=== PATIENT | male | born 1970 | race Two or more races ===

== ENCOUNTER 2025-05-31 07:11 | Inpatient (IN) | payer MEDICAID, OTHER ==
[~2025-05-31] VITALS: Ht 182.9 cm; Wt 118.7 kg
--- NOTE | 2025-05-31 08:20 | DVH ---
EXAM: XY CHEST PORTABLE Indication: pain Technique: Single frontal view of the chest was obtained Comparison: None FINDINGS: Lines and Tubes: None Lungs: No focal consolidation. Pleura: No effusion. No pneumothorax. Cardiomediastinal contours: Unremarkable. Atherosclerotic vascular calcifications of the thoracic ao rta are noted. Bones: No acute osseous abnormality. IMPRESSION: No acute cardiopulmonary disease.
--- NOTE | 2025-05-31 08:24 | ED.PDOC ---
GI ASSESSMENT HPI Comments 54 y/o M, presents to the ED for CC of abdominal pain. Patient states, he has been experiencing epigastric abdominal pain with associated nausea x1 day. Patient denies vomiting, diarrhea, melena, or constipation. No other associated symptoms, modifiers, recent injuries or sick contacts are present at this time. Chief Complaint: Abdominal Pain Time Seen by MD: 08:00 Reviewed Notes: Nurses Notes, Medications, Allergies Allergies: Coded Allergies: NO KNOWN ALLERGIES (Unverified , 05/31/25) Information Source: Patient Mode of Arrival: Ambulatory Timing: Days Duration: Since onset Prehospital treatment: None Quality: None Vomitus: None Stool: Normal Severity: Moderate Recent: None Recent Hx of: None Pain Location: Epigastric Modifying Factors: Nothing Associated sign and symptoms: Abdominal Pain Past Medical History PAST MEDICAL HISTORY: Denies Surgical History: Appendectomy Family History Family History: Unknown Social History Smoker: Non-Smoker Alcohol: Denies ETOH Use Drugs: Denies Drug Use Lives In: Home Constitutional: denies: chills, diaphoresis, fatigue, fever, malaise, sweats, weakness, others EENTM: denies: blurred vision, double vision, ear bleeding, ear discharge, ear drainage, ear pain, ear ringing, eye pain, eye redness, hearing loss, mouth pain, mouth swelling, nasal discharge, nose bleeding, nose congestion, nose pain, photophobia, tearing, throat pain, throat swelling, voice changes, others Respiratory: denies: cough, hemoptysis, orthopnea, SOB at rest, shortness of breath, SOB with excertion, stridor, wheezing, others Cardiovascular: denies: chest pain, dizzy spells, diaphoresis, Dyspnea on exertion, edema, irregular heart beat, left arm pain, lightheadedness, palpitat ions, PND, syncope, others Gastrointestinal: reports: abdominal pain, nausea; denies: abdomen distended, blood streaked bowels, constipated, diarrhea, dysphagia, difficulty swallowing, hematemesis, melena, poor appetite, poor fluid intake, rectal bleeding, rectal pain, vomiting, others Genitourinary: denies: burning, dysuria, flank pain, frequency, hematuria, incontinence, penile discharge, penile sore, pain, testicle pain, testicle swelling, urgency, others Neurological: denies: dizziness, fainting, headache, left sided numbness, left sided weakness, numbness, paresthesia, pre-existing deficit, right sided numbness, right sided weakness, seizure, speech problems, tingling, tremors, weakness, others Musculoskeletal: denies: back pain, gout, joint pain, joint swelling, muscle pain, muscle stiffness, neck pain, others Integumetry: denies: bruises, change in color, change in hair/nails, dryness, laceration, lesions, lumps, rash, wounds, others Allergic/Immunocompromised: denies: Difficulty Healing, Frequent Infections, Hives, Itching, others Hematologic/Lymphatic: denies: anemia, blood clots, easy bleeding, easy bruising, swollen glands, others Endocrine: denies: excessive hunger, excessive sweating, excessive thirst, excessive urination, flushing, intolerance to cold, intolerance to heat, unexplained weight gain, unexplained weight loss, others Psychiatric: denies: anxiety, bipolar disorder, depression, hopeless, panic disorder, schizophrenia, sleepless, suicidal, others All Other Systems: Reviewed and Negative Physical Exam General Appearance: No Apparent Distress, Normal HEENT: Normal ENT Inspection, Pharynx Normal Neck: Full Range of Motion, Non-Tender, Normal, Normal Inspection Respiratory: Chest Non-Tender, Lungs Clear, No Accessory Muscle Use, No Respiratory Distress, Normal Breath Sounds Cardiovascular: No Edema, No Murmur, No Gallop, Normal Peripheral Pulses, Regular Rate/Rhythm Breast Exam: Deferred Gastrointestinal: No Organomegaly, No Pulsatile Mass, Normal Bowel Sounds, Other (epigastric tenderness) Genitalia: Deferred Pelvic: Deferred Rectal: Deferred Extremities: No calf tenderness, Normal capillary refill, Normal inspection, Normal range of motion, Non-tender, No pedal edema Musculoskeletal : Apperance: Normal 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 Was a procedure done?: No GI differential Dx Differential Diagnosis: Gastritis/PUD, Gastroenteritis, Electrolyte Imbalance, Food Poisoning, Bacterial, Viral X-Ray, Labs, Meds, VS Vital Signs Date Time Temp Pulse Resp B/P (MAP) Pulse Ox O2 Delivery O2 Flow Rate FiO2 05/31/25 12:31 98 20 196/127 (150) 97 05/31/25 07:12 97.6 62 16 239/131 96 97.6 Lab Test 05/31/25 08:55 05/31/25 08:53 05/31/25 08:02 Range/Units Troponin I High Sensitivity 5 5 </=54 ng/L Urine Color Light-yellow Yellow Urine Clarity Clear Clear Urine pH 7.0 5.0-9.0 Urine Specific [place] 1.018 1.001-1.035 Urine Protein 1+ H Negative Urine Ketones Trace Negative Urine Blood Negative Negative /uL Urine Nitrite Negative Negative Urine Bilirubin Negative Negative Urine Urobilinogen Normal Negative mg/dL Urine Leukocyte Esterase Negative Negative /uL Urine RBC 3 0 - 3 /hpf Urine Microscopic WBC < 1 0-3 /HPF Urine Squamous Epithelial Cells None seen <5 /hpf Urine Bacteria None seen None Seen /hpf Urine Glucose 1+ H Normal mg/dL White Blood Count 7.0 4.4-10.8 10^3/uL Red Blood Count 4.90 4.5-5.90 10^6/uL Hemoglobin 13.7 13.5-17.5 g/dL Hematocrit 41.1 41.0-53.0 % Mean Corpuscular Volume 83.9 80.0-100.0 fL Mean Corpuscular Hemoglobin 28.0 28.0-32.0 pg Mean Corpuscular Hemoglobin Concent 33.4 32.0-36.0 g/dL Red Cell Distribution Width 15.8 H 11.8-14.3 % Platelet Count 239 140-450 10^3/uL Mean Platelet Volume 9.7 6.9-10.8 fL Neutrophils (%) (Auto) 87.2 H 37.0-80.0 % Lymphocytes (%) (Auto) 10.3 10.0-50.0 % Monocytes (%) (Auto) 2.2 0.0-12.0 % Eosinophils (%) (Auto) 0.0 0.0-7.0 % Basophils (%) (Auto) 0.3 0.0-2.0 % Neutrophils # (Auto) 6.1 1.6-8.6 10 ^3/uL Lymphocytes # (Auto) 0.7 0.4-5.4 10 ^3/uL Monocytes # (Auto) 0.2 0-1.3 10 ^3/uL Eosinophils # (Auto) 0 0-0.8 10 ^3/uL Basophils # (Auto) 0 0-0.2 10 ^3/uL Nucleated Red Blood Cells 0.0 % Sodium Level 141 136-145 mmol/L Potassium Level 3.9 3.5-5.1 mmol/L Chloride Level 102 98-107 mmol/L Carbon Dioxide Level 28 20-31 mmol/L Anion Gap 11 5-15 Blood Urea Nitrogen 8 L 9-23 mg/dL Creatinine 1.30 0.700-1.30 mg/dL Glomerular Filtration Rate Calc 66 >90 mL/min BUN/Creatinine Ratio 6.2 L 10.0-20.0 Serum Glucose 166 H 74-106 mg/dL Calcium Level 9.7 8.7-10.4 mg/dL B-Type Natriuretic Peptide 50.38 0-100 pg/mL Lipase 28 12-53 U/L Current Medications Medications (Trade) Dose Ordered Sig/Carol Route Start Time Stop Time Status Last Admin Sodium Chloride 1,000 ml @ 1,000 mls/hr Q1H ONCE IV 05/31/25 08:15 05/31/25 09:14 DC 05/31/25 12:32 Ondansetron HCl (Zofran) 4 mg ONCE ONCE IV 05/31/25 08:15 05/31/25 08:18 DC 05/31/25 12:32 [place] [address] Ph: [phone] DIAGNOSTIC IMAGING Diagnostic Imaging Report : [id number] Signed PATIENT: SHAWANDA OLMEDO ACCT: [id number] UNIT: [id number] : 1970 LOC: ER ROOM / BED: / AGE / SEX: 54 / M ADM STATUS: REG ER SERVICE 0744 ORDERING PHYSICIAN: MYLENE YING MD PROCEDURE(s): CXRP - CHEST PORTABLE REASON: abdominal pain ORDER NUMBER(s): [id number], ACCESSION NUMBER(s): [id number] EXAM: XY CHEST PORTABLE Indication: pain Technique: Single frontal view of the chest was obtained Comparison: None FINDINGS: Lines and Tubes: None Lungs: No focal consolidation. Pleura: No effusion. No pneumothorax. Cardiomediastinal contours: Unremarkable. Atherosclerotic vascular calcifications of the thoracic aorta are noted. Bones: No acute osseous abnormality. IMPRESSION: No acute cardiopulmonary disease. ATED BY: NAYA GRACIA MD DICTATED DATE/TIME: 05/31/25817 SIGNED BY: NAYA GRACIA MD SIGNED DATE/TIME: 05/31/25817 CC: Time of 1ST Reevaluation: 08:30 Reevaluation 1ST: Unchanged Patient Education/Counseling: Diagnosis, Treatment Family Education/Counseling: No Family Present SEPSIS Sepsis Screen Date sepsis recognized/suspect: May 31, 2025 Time Sepsis recognized/suspect: 715 Recent Procedure: No On Antibiotic Therapy: No Respiratory Rate >20: No Heart Rate >90: No Temp<36 C (96.8 F) or >38.3 C: No SBP <90 or MAP <65 mmHG: No New Acute Mental Status Change: No Is the patient on CPAP, BIPAP,: No Physician Orders Chest Portable (05/31/25 07:44) Ct Ab Pel With Iv Con Only (05/31/25 11:14) Cefazolin Ancef (05/31/25 13:30) Metronidazole Ivpb Flagyl (05/31/25 13:30) * Surgical Consult (05/31/25 ) Vital Signs Date Time Temp Pulse Resp B/P (MAP) Pulse Ox O2 Delivery O2 Flow Rate FiO2 05/31/25 12:31 98 20 196/127 (150) 97 05/31/25 07:12 97.6 62 16 239/131 96 97.6 Laboratory Tests Test 05/31/25 08:02 White Blood Count 7.0 10^3/uL (4.4-10.8) Medications Medications Dose Ordered Sig/Carol Route Start Time Stop Time Status Last Admin Dose Admin Ondansetron HCl 4 mg ONCE ONCE IV 05/31/25 08:15 05/31/25 08:18 DC 05/31/25 12:32 Sodium Chloride 1,000 ml @ 1,000 mls/hr Q1H ONCE IV 05/31/25 08:15 05/31/25 09:14 DC 05/31/25 12:32 Departure 1 Departure Time of Disposition: 13:29 (Patient presented with abdominal pain that was concerning for possible appendicits, gastritis, cholecystitis, colitis, gastroenteritis, sbo, or orther possible surgical emergency. Data: 1. I ordered and reviewed the result of at least 3 labs including a CBC, BMP, and Urinalysis. 2. I independently interpreted the following tests: CT Abdomen and Pelvis is concerning for acute cholecystitis .Risk:This patient has a high risk of morbidity due to further diagnostic testing or treatment and may suffer from an acute abdominal process disorder. Workup reveals acute cholecystitis and patient should be admitted for further workup. and possible expert consultation. ) Impression: Primary Impression: Acute cholecystitis Additional Impression: Intractable abdominal pain Disposition: ADMITTED INPATIENT Admit to: Med Surg Condition: Serious Critical Care Note Critical Care Time?: Yes Critical care comment: Intractable abdominal pain Authorized and Performed by: Mylene Ying MD Total critical care time: Approximately 38 minutes Due to a high probability of clinically significant, life threatening deterioration, the patient required my highest level of preparedness to intervene emergently and I personally spent this critical care time directly and personally managing the patient. This critical care time included obtaining a history; examining the patient; pulse oximetry; ordering and review of studies; arranging urgent treatment with development of a management plan; evaluation of patient's response to treatment; frequent reassessment; and, discussions with other providers. This critical care time was performed to assess and manage the high probability of imminent, life-threatening deterioration that could result in multi-organ failure. It was exclusive of separately billable procedures and treating other patients and teaching time. Please see my other sections and the rest of the note for further information on patient assessment and treatment. Stability Stability form required: No Heart Score Heart Score: Heart Score Response (Comments) Value History N/A 0 EKG N/A 0 Age N/A 0 Risk Factors N/A 0 Troponin N/A 0 Total 0 I personally scribed for MYLENE YNIG MD ([email or web address]) on 05/31/25 at 08:24. Electronically submitted by Lyssa Graham ([email or web address]). I personally scribed for MYLENE YING MD ([email or web address]) on 05/31/25 at 08:46. Electronically submitted by Lyssa Graham ([email or web address]). MYLENE YING MD May 31, 2025 08:24
[2025-05-31 08:33] LABS: Hematocrit 41.1 % (41.0-53.0); Hemoglobin 13.7 g/dL (13.5-17.5); Mean Corpuscular Hemoglobin 28.0 pg (28.0-32.0); Mean Corpuscular Volume 83.9 fL (80.0-100.0); Nucleated Red Blood Cells % 0.0 %
[2025-05-31 08:41] LABS: Chloride 102 mmol/L (98-107); Potassium 3.9 mmol/L (3.5-5.1); Sodium 141 mmol/L (136-145)
[2025-05-31 08:42] LABS: Anion Gap 11 (5-15); Calcium 9.7 mg/dL (8.7-10.4); Carbon Dioxide 28 mmol/L (20-31)
[2025-05-31 08:47] LABS: BUN/Creatinine Ratio 6.2 (10.0-20.0)
[2025-05-31 08:51] LABS: Blood Urea Nitrogen 8 mg/dL (9-23); Glucose 166 mg/dL (74-106)
[2025-05-31 10:42] LABS: Urine Protein, UAD 1+ (Negative)
[2025-05-31] MEDS: ONDANSETRON HCL 4 MG/2 ML VIAL IV ONE (12:32)
[2025-05-31] MEDS: SODIUM CHLORIDE 0.9% 1,000 ML IV ONE ×2 (12:32→17:45)
[2025-05-31] MEDS: MORPHINE SULFATE 4 MG/ML SYR/VIAL IV ONE (12:33)
[2025-05-31] MEDS: IOHEXOL 300 MG/ML 100ML BOTTLE IJ ONE (12:33)
--- NOTE | 2025-05-31 12:38 | DVH ---
EXAM: CT CT AB PEL WITH IV CON ONLY HISTORY: abdominal pain TECHNIQUE: Volumetric multidetector CT images of the abdomen and pelvis were obtained after the admin istration of intravenous contrast. All CT scans at this facility use dose modulation, iterative recon struction, and/or weight based dosing when appropriate to reduce radiation dose to as low as reasonab ly achievable. COMPARISON: None FINDINGS: [LOWER CHEST]: The partially visualized lung bases are clear without a pleural effusion. [LIVER]: Normal hepatic size without suspicious focal lesion. [GALLBLADDER AND BILIARY TREE]: Layering cholelithiasis with surrounding pericholecystic edema correl ate with clinical exam for acute cholecystitis. [SPLEEN]: Unremarkable. [PANCREAS]: Unremarkable. [ADRENAL GLANDS]: Unremarkable [KIDNEYS]: No hydronephrosis. No nephroureterolithiasis. Benign appearing renal cysts, compatible wit h Bosniak type I cyst. No imaging follow-up required. [BLADDER]: Unremarkable for the degree distention. [REPRODUCTIVE ORGANS]: Unremarkable. [BOWEL/MESENTERY]: Stomach is normal. No CT evidence of bowel obstruction. minimal sigmoid diverticul osis. [ASCITES]: Absent [LYMPHADENOPATHY]: No pathologically enlarged lymph nodes by CT size criteria [VASCULATURE]: No aneurysmal dilatation. [ABDOMINAL WALL]: Unremarkable. [MUSCULOSKELETAL]: No acute fracture or aggressive focal osseous lesion. IMPRESSION: 1. Layering cholelithiasis with surrounding pericholecystic edema correlate with clinical exam for ac michelle cholecystitis.
[2025-05-31] MEDS ORDERED: MORPHINE SULFATE INJ 2 MG/ml SYRG IV PRN (14:15)
[2025-05-31] MEDS: ceFAZolin 2 GM/D5W50ml 50 ML IV ONE (14:16)
[2025-05-31] MEDS: hydrALAZINE HCL 20 MG/ML VL IV ONE ×2 (14:17→21:26)
[2025-05-31 14:22] VITALS: PULSE 74; RESP 18; O2SAT 98
[2025-05-31 14:56] LABS: Alanine Aminotransferase 22.0 U/L (7-40); Alkaline Phosphatase 79.0 U/L (46-116); Total Protein 8.1 g/dL (5.7-8.2)
[2025-05-31 14:57] LABS: Albumin 5.0 g/dL (3.2-4.8); Bilirubin, Direct 0.1 mg/dL (<0.3); Bilirubin, Total 0.5 mg/dL (0.2-1.0)
[2025-05-31 15:14] LABS: INR 1.02 (0.9-1.15); Partial Thromboplastin Time 25.7 SEC (24.5-34.5); Prothrombin Time 10.8 sec (9.3-11.8)
--- NOTE | 2025-05-31 17:32 | DVHHP2 ---
History of Present Illness Reason for Visit: Abdominal pain History of Present Illness 54-year-old male presents for evaluation of abdominal pain. Patient endorses a one day history of sharp epigastric abdominal pain with associated nausea and chills. Currently rates the pain at 4/10 intensity. No cardiac or respiratory complaints. Past Medical History Denies Past Surgical History Appendectomy Family History Noncontributory Smoke: No ALCOHOL: none Drugs: None Lives: with Family Review of Systems Review of Systems Review of systems are currently negative otherwise addressed in HPI. Allergies: Coded Allergies: NO KNOWN ALLERGIES (Unverified , 05/31/25) Medications Current Medications Medications Dose Ordered Sig/Carol Route Start Time Stop Time Status Last Admin Dose Admin Ceftriaxone Sodium 50 ml @ 100 mls/hr DAILY@09 IV 06/01/25 09:00 Metronidazole 100 ml @ 100 mls/hr Q8HR IV 05/31/25 22:00 Ondansetron HCl 4 mg Q4HP PRN IV 05/31/25 14:15 Morphine Sulfate 2 mg Q4HPRN PRN IV 05/31/25 14:15 Pantoprazole Sodium 40 mg DAILY IV 06/01/25 10:00 Exam Vital Signs Vital Signs Date Time Temp Pulse Resp B/P (MAP) Pulse Ox O2 Delivery O2 Flow Rate FiO2 05/31/25 16:43 101 18 145/90 (108) 98 05/31/25 15:04 Room Air* 0 21 05/31/25 15:02 98.9 98.9 Exam Gen: 54-year-old male in mild distress. Skin: Warm, dry, normal color and texture, no rash. HEENT: Normocephalic atraumatic, mucous membranes moist and pink. Neck: Cervical and supraclavicular nodes normal without enlargement, trachea is midline, thyroid gland is normal without masses. Pulmonary: Clear to auscultation and percussion bilaterally. Cardiac: Regular rate and rhythm. No murmur Abdomen: Soft, epigastric tenderness, nondistended, bowel sounds present all 4 quadrants, no guarding, no rigidity, no organomegaly. Extremities: No cyanosis, clubbing, no edema Neuro: Cranial nerves II through XII grossly intact, normal affect and speech, no focal motor deficits. Labs/Xrays ORDERING PHYSICIAN: MYLENE JOLLY MD PROCEDURE(s): CXRP - CHEST PORTABLE REASON: abdominal pain ORDER NUMBER(s): [id number], ACCESSION NUMBER(s): [id number] EXAM: XY CHEST PORTABLE Indication: pain Technique: Single frontal view of the chest was obtained Comparison: None FINDINGS: Lines and Tubes: None Lungs: No focal consolidation. Pleura: No effusion. No pneumothorax. Cardiomediastinal contours: Unremarkable. Atherosclerotic vascular calcifications of the thoracic aorta are noted. Bones: No acute osseous abnormality. IMPRESSION: No acute cardiopulmonary disease. RING PHYSICIAN: MYLENE JOLLY MD PROCEDURE(s): ABPLIV - CT AB PEL WITH IV CON ONLY REASON: abdominal pain ORDER NUMBER(s): [id number], ACCESSION NUMBER(s): [id number] EXAM: CT CT AB PEL WITH IV CON ONLY HISTORY: abdominal pain TECHNIQUE: Volumetric multidetector CT images of the abdomen and pelvis were obtained after the administration of intravenous contrast. All CT scans at this facility use dose modulation, iterative reconstruction, and/or weight based dos ing when appropriate to reduce radiation dose to as low as reasonably achievable. COMPARISON: None FINDINGS: [LOWER CHEST]: The partially visualized lung bases are clear without a pleural effusion. [LIVER]: Normal hepatic size without suspicious focal lesion. [GALLBLADDER AND BILIARY TREE]: Layering cholelithiasis with surrounding pericholecystic edema correlate with clinical exam for acute cholecystitis. [SPLEEN]: Unremarkable. [PANCREAS]: Unremarkable. [ADRENAL GLANDS]: Unremarkable [KIDNEYS]: No hydronephrosis. No nephroureterolithiasis. Benign appearing renal cysts, compatible with Bosniak type I cyst. No imaging follow-up required. [BLADDER]: Unremarkable for the degree distention. [REPRODUCTIVE ORGANS]: Unremarkable. [BOWEL/MESENTERY]: Stomach is normal. No CT evidence of bowel obstruction. minimal sigmoid diverticulosis. [ASCITES]: Absent [LYMPHADENOPATHY]: No pathologically enlarged lymph nodes by CT size criteria [VASCULATURE]: No aneurysmal dilatation. [ABDOMINAL WALL]: Unremarkable. [MUSCULOSKELETAL]: No acute fracture or aggressive focal osseous lesion. IMPRESSION: 1. Layering cholelithiasis with surrounding pericholecystic edema correlate with clinical exam for acute cholecystitis. ATED BY: TIM GOLDBERG MD DICTATED DATE/TIME: 05/31/25 1235 Labs Test 05/31/25 14:26 05/31/25 08:55 05/31/25 08:53 05/31/25 08:02 Range/Units Prothrombin Time 10.8 9.3-11.8 sec Prothrombin Time INR 1.02 0.9-1.15 Activated Partial Thromboplast Time 25.7 24.5-34.5 SEC Total Bilirubin 0.5 0.2-1.0 mg/dL Direct Bilirubin 0.1 <0.3 mg/dL Aspartate Amino Transferase (AST) 18 13-40 U/L Alanine Aminotransferase (ALT) 22 7-40 U/L Alkaline Phosphatase 79 46-116 U/L Total Protein 8.1 5.7-8.2 g/dL Albumin 5.0 H 3.2-4.8 g/dL Troponin I High Sensitivity 5 </=54 ng/L Urine Color Light-yellow Yellow Urine Clarity Clear Clear Urine pH 7.0 5.0-9.0 Urine Specific [place] 1.018 1.001-1.035 Urine Protein 1+ H Negative Urine Ketones Trace Negative Urine Blood Negative Negative /uL Urine Nitrite Negative Negative Urine Bilirubin Negative Negative Urine Urobilinogen Normal Negative mg/dL Urine Leukocyte Esterase Negative Negative /uL Urine RBC 3 0 - 3 /hpf Urine Microscopic WBC < 1 0-3 /HPF Urine Squamous Epithelial Cells None seen <5 /hpf Urine Bacteria None seen None Seen /hpf Urine Glucose 1+ H Normal mg/dL White Blood Count 7.0 4.4-10.8 10^3/uL Red Blood Count 4.90 4.5-5.90 10^6/uL Hemoglobin 13.7 13.5-17.5 g/dL Hematocrit 41.1 41.0-53.0 % Mean Corpuscular Volume 83.9 80.0-100.0 fL Mean Corpuscular Hemoglobin 28.0 28.0-32.0 pg Mean Corpuscular Hemoglobin Concent 33.4 32.0-36.0 g/dL Red Cell Distribution Width 15.8 H 11.8-14.3 % Platelet Count 239 140-450 10^3/uL Mean Platelet Volume 9.7 6.9-10.8 fL Neutrophils (%) (Auto) 87.2 H 37.0-80.0 % Lymphocytes (%) (Auto) 10.3 10.0-50.0 % Monocytes (%) (Auto) 2.2 0.0-12.0 % Eosinophils (%) (Auto) 0.0 0.0-7.0 % Basophils (%) (Auto) 0.3 0.0-2.0 % Neutrophils # (Auto) 6.1 1.6-8.6 10 ^3/uL Lymphocytes # (Auto) 0.7 0.4-5.4 10 ^3/uL Monocytes # (Auto) 0.2 0-1.3 10 ^3/uL Eosinophils # (Auto) 0 0-0.8 10 ^3/uL Basophils # (Auto) 0 0-0.2 10 ^3/uL Nucleated Red Blood Cells 0.0 % Sodium Level 141 136-145 mmol/L Potassium Level 3.9 3.5-5.1 mmol/L Chloride Level 102 98-107 mmol/L Carbon Dioxide Level 28 20-31 mmol/L Anion Gap 11 5-15 Blood Urea Nitrogen 8 L 9-23 mg/dL Creatinine 1.30 0.700-1.30 mg/dL Glomerular Filtration Rate Calc 66 >90 mL/min BUN/Creatinine Ratio 6.2 L 10.0-20.0 Serum Glucose 166 H 74-106 mg/dL Calcium Level 9.7 8.7-10.4 mg/dL B-Type Natriuretic Peptide 50.38 0-100 pg/mL Lipase 28 12-53 U/L SEPSIS Sepsis Screen Date sepsis recognized/suspect: May 31, 2025 Time Sepsis recognized/suspect: 1503 Recent Procedure: No On Antibiotic Therapy: No Respiratory Rate >20: No Heart Rate >90: No Temp<36 C (96.8 F) or >38.3 C: No SBP <90 or MAP <65 mmHG: No New Acute Mental Status Change: No Is the patient on CPAP, BIPAP,: No Physician Orders Ct Ab Pel With Iv Con Only (05/31/25 11:14) * Surgical Consult (05/31/25 ) Basic Metabolic Panel (06/01/25 04:00) Ceftriaxone 1gm/50ml (Rocephin) (06/01/25 09:00) Metronidazole 500mg/100ml (Flagyl 500mg/ (05/31/25 22:00) Admit (05/31/25 14:01) Ondansetron Hcl (Zofran) (05/31/25 14:15) Complete Blood Count (06/01/25 04:00) Npo (Nothing By Mouth) Diet (05/31/25 Dinner) Condition: Stable (05/31/25 14:01) Bedrest With Bathroom Privileg (05/31/25 14:01) Morphine Sulfate Injection (05/31/25 14:15) Pantoprazole (Protonix) (06/01/25 10:00) Vital Signs Date Time Temp Pulse Resp B/P (MAP) Pulse Ox O2 Delivery O2 Flow Rate FiO2 05/31/25 16:43 101 18 145/90 (108) 98 05/31/25 15:04 96 Room Air* 0 21 05/31/25 15:02 98.9 108 17 135/80 (98) 97 98.9 05/31/25 14:22 74 18 98 Room Air* 0 21 05/31/25 14:17 196/127 05/31/25 12:31 98 20 196/127 (150) 97 Laboratory Tests Test 05/31/25 08:02 White Blood Count 7.0 10^3/uL (4.4-10.8) Medications Medications Dose Ordered Sig/Carol Route Start Time Stop Time Status Last Admin Dose Admin Cefazolin Sodium/ Dextrose 50 ml @ 50 mls/hr ONCE ONCE IV 05/31/25 13:30 05/31/25 14:29 DC 05/31/25 14:16 50 MLS/HR Hydralazine HCl 20 mg ONCE ONCE IV 05/31/25 13:45 05/31/25 13:46 DC 05/31/25 14:17 20 MG Metronidazole 100 ml @ 100 mls/hr ONCE ONCE IV 05/31/25 13:30 05/31/25 14:29 DC 05/31/25 14:17 100 MLS/HR Ondansetron HCl 4 mg ONCE ONCE IV 05/31/25 08:15 05/31/25 08:18 DC 05/31/25 12:32 4 MG Sodium Chloride 1,000 ml @ 1,000 mls/hr Q1H ONCE IV 05/31/25 08:15 05/31/25 09:14 DC 10/9/25 12:32 1,000 MLS/HR Assessment/Plan Assessment/Plan Assessment Acute abdominal pain Rule out acute cholecystitis Cholelithiasis Plan Admit the patient to [facility] to the hospitalist Surgical consultation NPO HIDA scan pending Rocephin/Flagyl Maintenance IV fluids Continue treatment per orders. Plan discussed with: Patient My Orders Orders - TISHA WALDRON Procedure Category Date Status Time Basic Metabolic Panel LAB 06/01/25 Verified 04:00 Ceftriaxone 1gm/50ml PHA 06/01/25 In Process (Rocephin) 09:00 Metronidazole PHA 05/31/25 In Process 500mg/100ml (Flagyl 22:00 Admit ADMIT 05/31/25 Transmitted 14:01 Ondansetron Hcl PHA 05/31/25 In Process (Zofran) 14:15 Complete Blood Count LAB 06/01/25 Verified 04:00 Npo (Nothing By DIET 05/31/25 Transmitted Mouth) Diet Dinner Condition: Stable SHIRA 05/31/25 In Process 14:01 Bedrest With Bathroom SHIRA 05/31/25 In Process Privileg 14:01 Morphine Sulfate PHA 05/31/25 In Process Injection 14:15 Pantoprazole PHA 06/01/25 In Process (Protonix) 10:00 Date of Service: May 31, 2025 Billing Provider: TISHA WALDRON Common Visit Codes: [id number] INP/OBS CARE (HIGH) TISHA WALDRON May 31, 2025 17:32
[2025-05-31 18:00] VITALS: BP 186/108; PULSE 118; RESP 16; TEMP 97.6; O2SAT 98
--- NOTE | 2025-05-31 19:18 | DVHINCON2 ---
Consultation - Surgical Date Seen: May 31, 2025 Referring Physician Reason for Consultation Acute cholecystitis History of Present Illness History of Present Illness Mr. Ayala is a 54-year-old male who presents due to epigastric and right upper quadrant abdominal pain that started last night around midnight. Pain is associated with nausea and vomiting. He had this same pain approximately 3 weeks ago but lasted 3 hours and went away. Associates eating cake with the pain. Denies fevers, chills, acholic stools, blood in the stools, changes in urinary or stooling habits. Past Medical/Surgical History Past Medical/Surgical History PMH hypertension PSH open appendectomy Family and Social History Family and Social History Family history noncontributory Allergies and medications Allergies: Coded Allergies: NO KNOWN ALLERGIES (Unverified , 05/31/25) Review of systems Review of Systems: Deferred Examination Vital signs Vital Signs Date Time Temp Pulse Resp B/P (MAP) Pulse Ox O2 Delivery O2 Flow Rate FiO2 05/31/25 16:43 101 18 145/90 (108) 98 05/31/25 15:04 Room Air* 0 21 05/31/25 15:02 98.9 98.9 Medications Current Medications Medications (Trade) Dose Ordered Sig/Carol Route PRN Reason Start Time Stop Time Status Last Admin Ceftriaxone Sodium 50 ml @ 100 mls/hr DAILY@09 IV 06/01/25 09:00 Metronidazole 100 ml @ 100 mls/hr Q8HR IV 05/31/25 22:00 Ondansetron HCl (Zofran) 4 mg Q4HP PRN IV NAUSEA / VOMITING 05/31/25 14:15 Morphine Sulfate 2 mg Q4HPRN PRN IV SEVERE PAIN (7-10 PAIN SCALE) 05/31/25 14:15 Pantoprazole Sodium (Protonix) 40 mg DAILY IV 06/01/25 10:00 Laboratory Labs Test 05/31/25 14:26 05/31/25 08:55 05/31/25 08:53 05/31/25 08:02 Range/Units Prothrombin Time 10.8 9.3-11.8 sec Prothrombin Time INR 1.02 0.9-1.15 Activated Partial Thromboplast Time 25.7 24.5-34.5 SEC Total Bilirubin 0.5 0.2-1.0 mg/dL Direct Bilirubin 0.1 <0.3 mg/dL Aspartate Amino Transferase (AST) 18 13-40 U/L Alanine Aminotransferase (ALT) 22 7-40 U/L Alkaline Phosphatase 79 46-116 U/L Total Protein 8.1 5.7-8.2 g/dL Albumin 5.0 H 3.2-4.8 g/dL Troponin I High Sensitivity 5 </=54 ng/L Urine Color Light-yellow Yellow Urine Clarity Clear Clear Urine pH 7.0 5.0-9.0 Urine Specific [place] 1.018 1.001-1.035 Urine Protein 1+ H Negative Urine Ketones Trace Negative Urine Blood Negative Negative /uL Urine Nitrite Negative Negative Urine Bilirubin Negative Negative Urine Urobilinogen Normal Negative mg/dL Urine Leukocyte Esterase Negative Negative /uL Urine RBC 3 0 - 3 /hpf Urine Microscopic WBC < 1 0-3 /HPF Urine Squamous Epithelial Cells None seen <5 /hpf Urine Bacteria None seen None Seen /hpf Urine Glucose 1+ H Normal mg/dL White Blood Count 7.0 4.4-10.8 10^3/uL Red Blood Count 4.90 4.5-5.90 10^6/uL Hemoglobin 13.7 13.5-17.5 g/dL Hematocrit 41.1 41.0-53.0 % Mean Corpuscular Volume 83.9 80.0-100.0 fL Mean Corpuscular Hemoglobin 28.0 28.0-32.0 pg Mean Corpuscular Hemoglobin Concent 33.4 32.0-36.0 g/dL Red Cell Distribution Width 15.8 H 11.8-14.3 % Platelet Count 239 140-450 10^3/uL Mean Platelet Volume 9.7 6.9-10.8 fL Neutrophils (%) (Auto) 87.2 H 37.0-80.0 % Lymphocytes (%) (Auto) 10.3 10.0-50.0 % Monocytes (%) (Auto) 2.2 0.0-12.0 % Eosinophils (%) (Auto) 0.0 0.0-7.0 % Basophils (%) (Auto) 0.3 0.0-2.0 % Neutrophils # (Auto) 6.1 1.6-8.6 10 ^3/uL Lymphocytes # (Auto) 0.7 0.4-5.4 10 ^3/uL Monocytes # (Auto) 0.2 0-1.3 10 ^3/uL Eosinophils # (Auto) 0 0-0.8 10 ^3/uL Basophils # (Auto) 0 0-0.2 10 ^3/uL Nucleated Red Blood Cells 0.0 % Sodium Level 141 136-145 mmol/L Potassium Level 3.9 3.5-5.1 mmol/L Chloride Level 102 98-107 mmol/L Carbon Dioxide Level 28 20-31 mmol/L Anion Gap 11 5-15 Blood Urea Nitrogen 8 L 9-23 mg/dL Creatinine 1.30 0.700-1.30 mg/dL Glomerular Filtration Rate Calc 66 >90 mL/min BUN/Creatinine Ratio 6.2 L 10.0-20.0 Serum Glucose 166 H 74-106 mg/dL Calcium Level 9.7 8.7-10.4 mg/dL B-Type Natriuretic Peptide 50.38 0-100 pg/mL Lipase 28 12-53 U/L Examination: GENERAL:Normal, HEENT:Normal (No icterus), ABDOMEN:Abnormal (Nondistended, right lower quadrant scar, no hernias, no masses, soft, depressible, exquisite right upper quadrant tenderness, no rebound, no guarding) Problem List/Assessment/Plan Problems: (1) Acute cholecystitis Assessment and Plan is a 54-year-old male who presented with the acute cholecystitis. CT shows gallstones within the gallbladder wall lumen with surrounding inflammatory changes. On physical exam the patient is exquisitely tender in the right upper quadrant. LFTs are within normal limit. Patient will benefit from laparoscopic cholecystectomy, possible open. Procedure, risks, benefits, complications, and alternatives discussed with the patient. Patient would like to proceed with surgical plan. 1. On-call to OR tomorrow a.m. for laparoscopic cholecystectomy 2. NPO at midnight 3. Pain and nausea control 4. A.m. labs Plan discussed with Plan discussed with: Patient Visit Coding Surgery Date of Service if different f: May 31, 2025 Billing Provider: JOEL NOGUERA MD Surgery Visit Codes: [id number] - INP CONSULT <110 MIN JOEL NOGUERA MD May 31, 2025 19:18
[2025-05-31] MEDS: HYDROcodone-ACET 5/325MG TAB PO PRN (21:28)
[2025-05-31 21:35] VITALS: BP 155/95; PULSE 109; RESP 16; TEMP 97.6; O2SAT 94
[2025-06-01] VITALS (7 sets, daily range): BP systolic 127–176; BP diastolic 91–113; PULSE 69–118; RESP 12–20; TEMP 97–98.4; O2SAT 93–100
[2025-06-01] MEDS: IBUPROFEN 600 MG TAB PO SCH
[2025-06-01] MEDS: ACETAMINOPHEN 325 MG TAB PO SCH
[2025-06-01 06:26] LABS: Hematocrit 38.2 % (41.0-53.0); Hemoglobin 12.9 g/dL (13.5-17.5); Mean Corpuscular Hemoglobin 28.1 pg (28.0-32.0); Mean Corpuscular Volume 83.4 fL (80.0-100.0); Nucleated Red Blood Cells % 0.0 %
[2025-06-01 06:36] LABS: Chloride 104 mmol/L (98-107); Potassium 3.9 mmol/L (3.5-5.1); Sodium 142 mmol/L (136-145)
[2025-06-01 06:37] LABS: Anion Gap 11 (5-15); Carbon Dioxide 27 mmol/L (20-31)
[2025-06-01 06:38] LABS: Calcium 9.3 mg/dL (8.7-10.4)
[2025-06-01 06:42] LABS: BUN/Creatinine Ratio 9.0 (10.0-20.0); Blood Urea Nitrogen 13 mg/dL (9-23)
[2025-06-01 06:45] LABS: Glucose 110 mg/dL (74-106)
[2025-06-01] MEDS ORDERED: ONDANSETRON HCL 4 MG/2 ML VIAL ONE (07:01)
[2025-06-01] MEDS ORDERED: LIDOCAINE 2% (LOCAL ANESTH.) PF 5ml SDV ONE ×2 (07:01→09:17)
[2025-06-01] MEDS ORDERED: KETOROLAC TROMETH 30 MG/ML 1ML VIAL ONE (07:01)
[2025-06-01] MEDS ORDERED: GLYCOPYRROLATE 0.2 MG/ML 1ML VIAL ONE (07:01)
[2025-06-01] MEDS ORDERED: ROCURONIUM 10MG/ML 10ML VIAL IV ONE (07:01)
[2025-06-01] MEDS ORDERED: PROPOFOL 10 MG/ML 20 ML IV ONE (07:01)
[2025-06-01] MEDS ORDERED: SUGAMMADEX 200mg/2ml Vial (100MG/ML) IV ONE (07:01)
[2025-06-01] MEDS ORDERED: LIDOCAINE HCL 2% TOP JELLY 5ML TOP ONE (07:01)
[2025-06-01] MEDS ORDERED: fentaNYL CITRATE 100 MCG/2 ML VL ONE (07:06)
[2025-06-01] MEDS: ACETAMINOPHEN IV 100 ML IV ONE (07:15)
[2025-06-01] MEDS: CELECOXIB 100 MG CAP PO ONE (07:15)
[2025-06-01] MEDS: GABAPENTIN 300 MG CAP PO ONE (07:15)
[2025-06-01] MEDS: ACETAMINOPHEN IV 1000 MG/100ML (10MG/ML) IV ONE (07:15)
[2025-06-01] MEDS: GABAPENTIN 300 MG CAP ONE (07:19)
[2025-06-01] MEDS: CELECOXIB 100 MG CAP ONE (07:19)
[2025-06-01] MEDS: BUPIVACAINE 0.25% INJ 50ML VIAL ONE (07:35)
[2025-06-01] MEDS ORDERED: SODIUM CHLORIDE LOCK 10 ML ONE (09:00)
[2025-06-01] MEDS ORDERED: PHENYLEPHRINE HCL 10 MG/ML VL ONE (09:00)
[2025-06-01] MEDS ORDERED: ONDANSETRON HCL 4 MG/2 ML VIAL IV PRN (10:00)
[2025-06-01] MEDS: PANTOPRAZOLE 40 MG/10 ML VIAL INJ IV SCH (10:00)
[2025-06-01] MEDS ORDERED: NALOXONE HCL 0.4 MG/ML VIAL IV PRN (10:00)
[2025-06-01] MEDS ORDERED: HYDROmorphone HCL 2 MG/ML VL/or syr IV PRN (10:00)
[2025-06-01] MEDS ORDERED: FLUMAZENIL 0.1 MG/ML INJ 10ML MDV IV PRN (10:00)
[2025-06-01] MEDS ORDERED: fentaNYL CITRATE 100 MCG/2 ML VL IV PRN (10:00)
--- NOTE | 2025-06-01 10:00 | ANESTHESIA ---
Anesthesia Post-Anest Assess within 48hrs Date/Time DATE: 06/01/25 TIME: 09:55 Post Anesthesia Assessment: Vital signs normal, Alert and oriented, No adverse reaction, No complications, 02 Sat, Pain level, Absence nausea/vomiting, Post op hyd /preop status, Resp. function normal, Within 48hrs post anesthesia ADDENDUM ADDENDUM ADDENDUM Immediately prior to arrival in OR, patient was visited by surgeon and staff was told that we could proceed. Patient was taken to OR, positioned on OR bed, and general anesthesia with an endotracheal tube was induced. Patient was stable throughout induction. Induction time was 0844. Patient was then prepped and draped. Patient was ready for surgery before 0900 and surgeon was called to make aware. Surgeon says that he is on its way. Over the next 30 minutes, surgeon is texted and called multiple times to find out about his whereabouts and when we would start surgery. During this time, patient is continuously hypotensive and requiring vasoactive support for normotension. At 0930, the front desk administrator of surgery is told that this is becoming unsafe and at the surgeon has limited time to report to the OR. This is made aware to the surgeon. As previously texted to the front desk administrator, he says that he is on his way. He is given an additional 5 minutes to report to the OR. After this time, he is still not available or present. Decision is made that this is becoming unsafe and we do not know when he is to report. Decision is made to wake/emerge the patient in transfer to PACU. Please see anesthesia record for all additional charting. JESÚS GEORGE CRNA Jun 01, 2025 10:00
[2025-06-01] MEDS: hydrALAZINE HCL 20 MG/ML VL IV PRN (10:08)
--- NOTE | 2025-06-01 10:41 | DVHPN2 ---
Progress Note - Surgical Date Seen: Jun 01, 2025 Post op day Post op day: 0 Subjective Patient reports: Feels better (Patient feeling slightly better this morning, was able to get some rest last night.) Review of Systems: Deferred Objective Vital signs Vital Sign Date Time Temp Pulse Resp B/P (MAP) Pulse Ox O2 Delivery O2 Flow Rate FiO2 06/01/25 10:08 170/110 06/01/25 05:23 97.5 101 16 96 97.5 05/31/25 20:00 Room Air* 0 21 Total Intake and Output 05/31/25 05/31/25 06/01/25 15:00 23:00 07:00 Intake Total 100 ml 100 ml Balance 100 ml 100 ml Medications Current Medications Medications Dose Ordered Sig/Carol Route Start Time Stop Time Status Last Admin Dose Admin Ceftriaxone Sodium 50 ml @ 100 mls/hr DAILY@09 IV 06/01/25 09:00 Metronidazole 100 ml @ 100 mls/hr Q8HR IV 05/31/25 22:00 06/01/25 05:55 100 MLS/HR Ondansetron HCl 4 mg Q4HP PRN IV 05/31/25 14:15 Pantoprazole Sodium 40 mg DAILY IV 06/01/25 10:00 Acetaminophen 650 mg Q6HR PO 06/01/25 00:00 Ibuprofen 600 mg Q6HR PO 06/01/25 00:00 Acetaminophen/ Hydrocodone Bitart 1 tab Q4HPRN PRN PO 05/31/25 19:30 05/31/25 21:28 1 TAB Acetaminophen/ Hydrocodone Bitart 1 tab Q4HP PRN PO 05/31/25 19:30 Hydralazine HCl 5 mg Q10M PRN IV 06/01/25 10:00 06/01/25 10:51 06/01/25 10:08 5 MG Ephedrine Sulfate 10 mg Q10M PRN IV 06/01/25 10:00 06/01/25 10:41 Hydromorphone HCl 0.5 mg Q10M PRN IV 06/01/25 10:00 06/01/25 10:41 Laboratory Laboratory Tests 06/01/25 05:30 Test 06/01/25 05:30 Range/Units Serum Glucose 110 H 74-106 mg/dL Examination: GENERAL:Normal, HEENT:Normal (No icterus), ABDOMEN:Normal (Nondistended, open appendectomy scar, soft, depressible, minimal right upper quadrant tenderness, no rebound, no guarding) Labs and/or images reviewed: Labs reviewed by me (No LFT abnormalities, no leukocytosis) Problem List/Assessment/Plan Assessment and Plan Mr. Ayala is a 54-year-old male who presented with the acute cholecystitis. Patient was booked for laparoscopic cholecystectomy this morning. Patient was induced under anesthesia for the procedure and given that I was with the patient at the clinic, I was delayed getting to the OR. Anesthesia decided to wake the patient up and reverse the anesthetics. I saw the patient in the PACU and explained what happened. Informed the patient that I was just going to treat the cholecystitis with antibiotics and we will schedule an appointment for him at the [facility] for elective cholecystectomy. 1. Okay to discharge 2. Augmentin 875 mg p.o. b.i.d. for 10-14 days 3. 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 [place] 5-325 mg p.o. every 6 hours p.r.n. severe pain 3. Low-fat diet 4. I will schedule an appointment for him at my clinic and we will give him a call with the appointment date. My Orders My Orders Orders - JOEL NOGUERA MD Procedure Category Date Status Time Npo After Midnight SHIRA 05/31/25 In Process 19:19 Npo (Nothing By DIET 06/01/25 Transmitted Mouth) Diet Breakfast Obtain Consent For: ORDERS 05/31/25 Transmitted 19:19 Obtain Consent For SHIRA 05/31/25 In Process Anesthesia 19:19 Acetaminophen Tablet PHA 06/01/25 In Process (Tylenol Tablet) 00:00 Ibuprofen Tablet PHA 06/01/25 In Process (Motrin Tablet) 00:00 Hydrocodone-Acet PHA 05/31/25 In Process 5/325mg Tab ([place] 19:30 Hydrocodone-Acet PHA 05/31/25 In Process 10/325mg Tab ([place] 19:30 Plan discussed with Plan discussed with: Patient Visit Coding Surgery Date of Service if different f: Jun 01, 2025 Billing Provider: JOEL NOGUERA MD Surgery Visit Codes: [id number] INP/OBS CARE(HIGH) JOEL NOGUERA MD Jun 01, 2025 10:41
[2025-06-01] MEDS: HYDROcodone-ACET 10/325MG TAB PO PRN (12:35)
[2025-06-01] MEDS: FLEET ENEMA(ADULT) 135 ML PR ONE (13:10)
--- NOTE | 2025-06-01 21:45 | DVHPN2 ---
Subjective The patient is seen and examined at bedside. Stated that he had severe abdominal pain and had not moved bowel movement for couple days. The patient is pretty upset because this morning he was under anesthesia, and then woke up without having surgery. His surgery was canceled this morning. Reviewed: Care Plan, H&P, Labs, Medications, Previous Orders, Radiology Changes from previous H/P or p: No Changes Objective Vitals Vital Signs Date Time Temp Pulse Resp B/P (MAP) Pulse Ox O2 Delivery O2 Flow Rate FiO2 06/01/25 16:30 98.4 99 18 144/100 (115) 96 98.4 06/01/25 10:00 Room Air 0 06/01/25 10:00 96 Intake/Output Intake and Output 06/01/25 07:00 Intake Total 200 ml Balance 200 ml Intake Oral 0 ml IV Total 200 ml # Voids 1 General Appearance: Alert, Oriented X3, Cooperative, No acute distress HEENT: Atraumatic, PERRLA, EOMI, Mucous membr. moist/pink Neck: Supple Lungs: Clear to auscultation, Normal air movement Cardiovascular: Regular rate, Normal S1, Normal S2, No murmurs, Gallops, Rubs Abdomen: Normal bowel sounds, Soft, No tenderness Neuro: Cranial nerves 3-12 NL Psych/Mental Status: Mental status NL Medications Current Medications Medications Dose Ordered Sig/Carol Route Start Time Stop Time Status Last Admin Dose Admin Ceftriaxone Sodium 50 ml @ 100 mls/hr DAILY@09 IV 06/01/25 09:00 Metronidazole 100 ml @ 100 mls/hr Q8HR IV 05/31/25 22:00 06/01/25 21:23 100 MLS/HR Ondansetron HCl 4 mg Q4HP PRN IV 05/31/25 14:15 Pantoprazole Sodium 40 mg DAILY IV 06/01/25 10:00 Acetaminophen 650 mg Q6HR PO 06/01/25 00:00 06/01/25 18:06 650 MG Ibuprofen 600 mg Q6HR PO 06/01/25 00:00 06/01/25 18:06 600 MG Acetaminophen/ Hydrocodone Bitart 1 tab Q4HPRN PRN PO 05/31/25 19:30 05/31/25 21:28 1 TAB Acetaminophen/ Hydrocodone Bitart 1 tab Q4HP PRN PO 05/31/25 19:30 06/01/25 21:22 1 TAB Hydralazine HCl 10 mg Q6HP PRN IV 06/01/25 15:15 Laboratory Results Laboratory Tests 06/01/25 05:30 Chemistry Test 06/01/25 05:30 Calcium Level 9.3 mg/dL (8.7-10.4) Urinalysis Test 05/31/25 08:53 Urine Color Light-yellow (Yellow) Urine Clarity Clear (Clear) Urine pH 7.0 (5.0-9.0) Urine Specific [place] 1.018 (1.001-1.035) Urine Protein 1+ (Negative) H Urine Ketones Trace (Negative) Urine Blood Negative /uL (Negative) Urine Nitrite Negative (Negative) Urine Bilirubin Negative (Negative) Urine Urobilinogen Normal mg/dL (Negative) Urine Leukocyte Esterase Negative /uL (Negative) Urine RBC 3 /hpf (0 - 3) Urine Microscopic WBC < 1 /HPF (0-3) Urine Squamous Epithelial Cells None seen /hpf (<5) Urine Bacteria None seen /hpf (None Seen) Urine Glucose 1+ mg/dL (Normal) H Labs and/or images reviewed: Labs reviewed by me Assessment/Plan Assessment/Plan Acute abdominal pain Rule out acute cholecystitis Cholelithiasis Constipation Plan Continuing current management. Continuing with IV antibiotic Rocephin and F lagyl. We will give Fleet enema for constipation NPO for now. We will give clear liquid diet if approved by surgeon. I discussed with the patient and also called Dr. Mendez. The patient is still have abdominal pain today so I am going to hold the discharge. Per Dr. Mendez, he reschedule the patient . He will see him in the clinic on Wednesday and subsequently had surgery later. This medical document was created using an electronic medical record system with M[employer] direct computerized dictation system. Although this document has been carefully reviewed, there may still be some phonetic and typographical errors. These areas are purely typographical due to imperfections of the software programs, and do not reflect any compromise in the patient's medical care. Plan discussed with: Patient My Orders Orders - JESSIE HENSON MD Procedure Category Date Status Time Hydralazine Injection PHA 06/01/25 In Process (Apresoline Inject 15:15 Date of Service: Jun 01, 2025 Billing Provider: JESSIE HENSON MD Common Visit Codes: [id number] INP/OBS CARE(HIGH) JESSIE HENSON MD Jun 01, 2025 21:45
[2025-06-02] MEDS: hydrALAZINE HCL 20 MG/ML VL IV PRN ×2 (00:58→14:35)
[2025-06-02 01:00] VITALS: BP 171/100; PULSE 74; RESP 20; TEMP 98; O2SAT 96
[2025-06-02 05:00] VITALS: BP 161/99; PULSE 91; RESP 20; TEMP 97.9; O2SAT 99
--- NOTE | 2025-06-02 10:37 | DVHPN2 ---
Progress Note - Surgical Date Seen: Jun 02, 2025 Post op day Post op day: 0 Subjective Patient reports: No new complaints (Patient is still having same amount of right upper quadrant abdominal pain, no nausea, no vomiting) Review of Systems: Deferred Objective Vital signs Vital Sign Date Time Temp Pulse Resp B/P (MAP) Pulse Ox O2 Delivery O2 Flow Rate FiO2 06/02/25 05:00 97.9 91 20 161/99 (119) 99 97.9 06/01/25 20:00 Room Air* 0 21 Total Intake and Output 06/01/25 06/01/25 06/02/25 15:00 23:00 07:00 Intake Total 100 ml 200 ml 400 ml Output Total 500 ml Balance 100 ml -300 ml 400 ml Medications Current Medications Medications Dose Ordered Sig/Carol Route Start Time Stop Time Status Last Admin Dose Admin Ceftriaxone Sodium 50 ml @ 100 mls/hr DAILY@09 IV 06/01/25 09:00 06/02/25 09:47 100 MLS/HR Metronidazole 100 ml @ 100 mls/hr Q8HR IV 05/31/25 22:00 06/02/25 05:12 100 MLS/HR Ondansetron HCl 4 mg Q4HP PRN IV 05/31/25 14:15 Pantoprazole Sodium 40 mg DAILY IV 06/01/25 10:00 06/02/25 09:47 40 MG Acetaminophen 650 mg Q6HR PO 06/01/25 00:00 06/02/25 05:13 650 MG Ibuprofen 600 mg Q6HR PO 06/01/25 00:00 06/02/25 05:13 600 MG Acetaminophen/ Hydrocodone Bitart 1 tab Q4HPRN PRN PO 05/31/25 19:30 05/31/25 21:28 1 TAB Acetaminophen/ Hydrocodone Bitart 1 tab Q4HP PRN PO 05/31/25 19:30 06/01/25 21:22 1 TAB Hydralazine HCl 10 mg Q6HP PRN IV 06/01/25 15:15 06/02/25 00:58 10 MG Laboratory Laboratory Tests 06/01/25 05:30 Test 06/01/25 05:30 Range/Units Serum Glucose 110 H 74-106 mg/dL Examination: GENERAL:Normal, HEENT:Normal (No icterus), ABDOMEN:Normal (Nondistended, soft, depressible, right upper quadrant tenderness, no rebound, no guarding) Problem List/Assessment/Plan Problems: (1) Acute cholecystitis Assessment and Plan Mr. Ayala is a 54-year-old male who presented with the acute cholecystitis. We will proceed with surgery today, laparoscopic cholecystectomy possible open. 1. On-call to OR today for laparoscopic cholecystectomy 2. NPO except meds 3. Pain and nausea control 4. Out of bed and ambulate My Orders My Orders Orders - JOEL NOGUERA MD Procedure Category Date Status Time Npo After Midnight SHRIA 06/01/25 In Process 15:42 Npo Except For SHIRA 06/02/25 In Process Medications 09:08 Npo (Nothing By DIET 06/02/25 Transmitted Mouth) Diet Breakfast Complete Blood Count LAB 06/02/25 Logged 09:09 Comprehensive LAB 06/02/25 Logged Metabolic Panel 09:09 Plan discussed with Plan discussed with: Patient Visit Coding Surgery Date of Service if different f: Jun 02, 2025 Billing Provider: JOEL NOGUERA MD Surgery Visit Codes: [id number] INP/OBS CARE(HIGH) JOEL NOGUERA MD Jun 02, 2025 10:37
[2025-06-02] MEDS ORDERED: ONDANSETRON HCL 4 MG/2 ML VIAL ONE (11:13)
[2025-06-02] MEDS ORDERED: PROPOFOL 10 MG/ML 20 ML IV ONE (11:13)
[2025-06-02] MEDS ORDERED: ROCURONIUM 10MG/ML 10ML VIAL IV ONE (11:13)
[2025-06-02] MEDS ORDERED: GLYCOPYRROLATE 0.2 MG/ML 1ML VIAL ONE (11:13)
[2025-06-02] MEDS ORDERED: KETOROLAC TROMETH 30 MG/ML 1ML VIAL ONE (11:13)
[2025-06-02] MEDS ORDERED: SUGAMMADEX 200mg/2ml Vial (100MG/ML) IV ONE (11:13)
[2025-06-02] MEDS ORDERED: LIDOCAINE 2% (LOCAL ANESTH.) PF 5ml SDV ONE ×2 (11:13→14:18)
[2025-06-02 11:35] LABS: Hematocrit 39.9 % (41.0-53.0); Hemoglobin 13.1 g/dL (13.5-17.5); Mean Corpuscular Hemoglobin 28.0 pg (28.0-32.0); Mean Corpuscular Volume 84.8 fL (80.0-100.0); Nucleated Red Blood Cells % 0.1 %
[2025-06-02] MEDS: CELECOXIB 100 MG CAP PO ONE (11:45)
[2025-06-02] MEDS ORDERED: ACETAMINOPHEN IV 1000 MG/100ML (10MG/ML) IV ONE (11:45)
[2025-06-02] MEDS: GABAPENTIN 300 MG CAP PO ONE (11:45)
[2025-06-02] MEDS ORDERED: LIDOCAINE 2%HCL (LOCAL ANESTH.) INJ 10ml MDV ONE (11:58)
[2025-06-02] MEDS: GABAPENTIN 100 MG CAP ONE (12:05)
--- NOTE | 2025-06-02 12:35 | ECG ---
[facility] Test Date: 2025-06-01 Test Time: 06:23:27 Pat Name: SHAWANDA OLMEDO Department: Respiratoy Room: 0247 B Gender: M Hand Mixer: JUANA : [id number] Requested By: JESSIE HENSON Order Number: [id number] Reading MD: Tj Cordon Measurements Intervals [place] Rate: 78 P: 12 MN: 146 QRS: 2 QRSD: 88 T: -6 QT: 373 QTc: 425 Interpretive Statements Sinus rhythm Nonspecific T abnormalities, lateral leads Borderline ST elevation, anterior leads Electronically Signed On 06-02-2025 20:01:00 PDT by Tj Cordon Please click the below link to view image of tracing.
[2025-06-02] MEDS ORDERED: fentaNYL CITRATE 100 MCG/2 ML VL ONE (12:54)
--- NOTE | 2025-06-02 14:09 | DVHOP2 ---
Operative Report - 2 Report Details Date: 06/02/25 Preop Diagnosis: Acute cholecystitis Postop Diagnosis: Same Surgeon: Cj Bailey MD Anesthesiologist: Rohit Feng CRNA Anesthesia: General Drains: None Consent: The patient was informed of the risks and benefits of the procedure. These inc lude but are not limited to complications of anesthesia, postoperative infection, incomplete relief of symptoms, recurrence of symptoms, damage to blood vessels, nerves and tendons, deep venous thrombosis, pulmonary embolism and possible need for repeat surgery in the future. Complications: None Estimated Blood Loss: 20 mL Findings: Acutely inflamed gallbladder, very congested infundibulum, a thin omental adhesions to the gallbladder Indications for Surgery: Acute cholecystitis Name of Procedure Performed Laparoscopic cholecystectomy Procedure Details Procedure Details: Upon arriving to the operating room the patient was transferred to the operating table and placed in the supine position with arms extended. General endotracheal anesthesia was induced. Time-out was observed. Patient was prepped and draped in the standard sterile surgical fashion with chlorhexidine. I then proceeded to make a infraumbilical curvilinear incision and dissected down to fascia. Once at the fascia I grasped the umbilical stalk with Shania clamp and walked it down to its base. Once at the base I gained entry into the peritoneal cavity using Aidee technique. I then placed a lceeoj-hl-[id number] fascial retention suture with 0 Vicryl. I then inserted the 12 mm trocar and insufflated the peritoneal cavity to 15 mmHg with toleration. I then inserted a 30 degree 10 mm camera and inspected the entry site no injuries found. Patient was then placed in the reverse Trendelenburg [id number] position. I then placed 3 additional working ports, 5 mm in length at the epigastric area, right midclavicular subcostal area, and right flank area. I then directed my attention to the liver and gallbladder. The gallbladder fundus was then grasped and elevated cephalad and towards the right shoulder. At this point I noted that the gallbladder was acutely inflamed with severe congestion at the i nfundibulum area. The gallbladder has some thin omental adhesions to it. These adhesions were lysed both bluntly and with cautery. I then placed another grasper at the infundibulum and retracted laterally. This exposed Calot triangle. I then incised the peritoneum at the base of the gallbladder on either side and opened it towards the liver. I then fully skeletonized Jan phillips. I then noted that the artery was anterior to the cystic duct. Both the artery and the duct were fully skeletonized. Critical view was obtained. I then proceeded to clip the artery with 2 5 mm clips proximal and 1 distal. The artery was then transected. This revealed the cystic duct completely. The duct was milked for any stones, there were none. I then placed 3 5 mm clips proximal on the cystic duct and 1 distal. Cystic duct was also transected. I then noted a posterior cystic artery branch, it was fully skeletonized, it was clipped with 5 mm clips 2 times proximal and 1 times distal. It was also transected. I then proceeded to free the gallbladder from its the liver attachments with cautery. There was some bile spillage during this process as the gallbladder was very intrahepatic and firmly attached at the prison point. Once the gallbladder was completely off of the liver I placed it in the Endo-Catch bag and removed it from the peritoneal cavity under direct view. I then proceeded to serially irrigated and suctioned the fluid from the fossa, below the liver, and above the liver until effluent was clear. I then noted that there was a tiny bleeding vessel from the lateral edge of the liver, this vessel was then clipped and cauterized above. Hemostasis achieved. I then did some more irrigations until effluent was clear. I took a 2nd look at the liver bed and it was completely hemostatic. I still decided to throw some [place] over the bleeding vessel. This concluded the intraperitoneal portion of the operation. All counts complete and correct. I then removed the 5 mm ports under direct view, no bleeding from abdominal wall. Peritoneal cavity was allowed to fully desufflate. I then closed the fascial retention stitch. Skin was closed at all sites with 4-0 Monocryl and Dermabond. 0.25% Marcaine was used as local anesthetic. Patient tolerated the procedure well and was transferred to PACU in stable condition. Condition Stable Disposition Still a Patient CJ NOGUERA MD Jun 02, 2025 14:09
[2025-06-02] MEDS ORDERED: fentaNYL CITRATE 100 MCG/2 ML VL IV PRN (14:15)
[2025-06-02] MEDS ORDERED: FLUMAZENIL 0.1 MG/ML INJ 10ML MDV IV PRN (14:15)
[2025-06-02] MEDS ORDERED: ONDANSETRON HCL 4 MG/2 ML VIAL IV PRN (14:15)
[2025-06-02] MEDS ORDERED: NALOXONE HCL 0.4 MG/ML VIAL IV PRN (14:15)
[2025-06-02] MEDS: HYDROmorphone HCL 2 MG/ML VL/or syr IV PRN (14:30)
[2025-06-02] MEDS ORDERED: HYDROmorphone HCL 2 MG/ML VL/or syr ONE (14:34)
--- NOTE | 2025-06-02 15:02 | DVHPN2 ---
Subjective The patient is seen and examined at bedside. Status post surgery. Tired. Reviewed: Care Plan, H&P, Labs, Medications, Previous Orders, Radiology Changes from previous H/P or p: No Changes Objective Vitals Vital Signs Date Time Temp Pulse Resp B/P (MAP) Pulse Ox O2 Delivery O2 Flow Rate FiO2 06/02/25 14:45 78 15 190/107 (134) 95 06/02/25 14:15 Nasal Cannula 2.0 06/02/25 13:58 97.8 97.8 06/02/25 08:00 21 Intake/Output Intake and Output 06/02/25 07:00 Intake Total 700 ml Output Total 500 ml Balance 200 ml Intake Oral 600 ml IV Total 100 ml Output Urine Total 500 ml # Voids 3 # Bowel Movements 2 General Appearance: Alert, Oriented X3, Cooperative, No acute distress HEENT: Atraumatic, PERRLA, EOMI, Mucous membr. moist/pink Neck: Supple Lungs: Clear to auscultation, Normal air movement Cardiovascular: Regular rate, Normal S1, Normal S2, No murmurs, Gallops, Rubs Abdomen: Normal bowel sounds, Soft, No tenderness Neuro: Cranial nerves 3-12 NL Psych/Mental Status: Mental status NL Medications Current Medications Medications Dose Ordered Sig/Carol Route Start Time Stop Time Status Last Admin Dose Admin Ceftriaxone Sodium 50 ml @ 100 mls/hr DAILY@09 IV 06/01/25 09:00 06/02/25 09:47 100 MLS/HR Metronidazole 100 ml @ 100 mls/hr Q8HR IV 05/31/25 22:00 06/02/25 05:12 100 MLS/HR Ondansetron HCl 4 mg Q4HP PRN IV 05/31/25 14:15 Pantoprazole Sodium 40 mg DAILY IV 06/01/25 10:00 06/02/25 09:47 40 MG Acetaminophen 650 mg Q6HR PO 06/01/25 00:00 06/02/25 05:13 650 MG Ibuprofen 600 mg Q6HR PO 06/01/25 00:00 06/02/25 05:13 600 MG Acetaminophen/ Hydrocodone Bitart 1 tab Q4HPRN PRN PO 05/31/25 19:30 05/31/25 21:28 1 TAB Acetaminophen/ Hydrocodone Bitart 1 tab Q4HP PRN PO 05/31/25 19:30 06/01/25 21:22 1 TAB Hydralazine HCl 10 mg Q6HP PRN IV 06/01/25 15:15 06/02/25 00:58 10 MG Hydralazine HCl 5 mg Q10M PRN IV 06/02/25 14:15 06/02/25 15:06 06/02/25 14:35 5 MG Ephedrine Sulfate 10 mg Q10M PRN IV 06/02/25 14:15 06/02/25 14:56 Hydromorphone HCl 0.5 mg Q10M PRN IV 06/02/25 14:15 06/02/25 14:56 06/02/25 14:43 0.5 MG Oxycodone HCl 10 mg ONCE PRN PO 06/02/25 14:15 06/02/25 16:00 Laboratory Results Laboratory Tests 06/02/25 11:04 Chemistry Test 06/02/25 12:10 Albumin Pending Calcium Level Pending Total Protein Pending LFT Test 06/02/25 12:10 Alanine Aminotransferase (ALT) Pending Alkaline Phosphatase Pending Aspartate Amino Transferase (AST) Pending Total Bilirubin Pending Urinalysis Test 05/31/25 08:53 Urine Color Light-yellow (Yellow) Urine Clarity Clear (Clear) Urine pH 7.0 (5.0-9.0) Urine Specific [place] 1.018 (1.001-1.035) Urine Protein 1+ (Negative) H Urine Ketones Trace (Negative) Urine Blood Negative /uL (Negative) Urine Nitrite Negative (Negative) Urine Bilirubin Negative (Negative) Urine Urobilinogen Normal mg/dL (Negative) Urine Leukocyte Esterase Negative /uL (Negative) Urine RBC 3 /hpf (0 - 3) Urine Microscopic WBC < 1 /HPF (0-3) Urine Squamous Epithelial Cells None seen /hpf (<5) Urine Bacteria None seen /hpf (None Seen) Urine Glucose 1+ mg/dL (Normal) H Labs and/or images reviewed: Labs reviewed by me Assessment/Plan Assessment/Plan Acute abdominal pain Rule out acute cholecystitis Cholelithiasis Constipation Elevation of blood pressure without diagnosis of HTN Plan Continuing current management. Continuing with IV antibiotic Rocephin and F lagyl. Status post surgery. Continue NPO until diet advance by surgeon. Continue IVF Continue pain medication for pain controlled. Hydralazine IV q 8h PRN for SBP greater than 160 This medical document was created using an electronic medical record system with [employer] direct computerized dictation system. Although this document has been carefully reviewed, there may still be some phonetic and typographical errors. These areas are purely typographical due to imperfections of the software programs, and do not reflect any compromise in the patient's medical care. Plan discussed with: Patient My Orders Orders - JESSIE HENSON MD Procedure Category Date Status Time Hydralazine Injection PHA 06/01/25 In Process (Apresoline Inject 15:15 Date of Service: Jun 02, 2025 Billing Provider: JESSIE HENSON MD Common Visit Codes: [id number] INP/OBS CARE(HIGH) JESSIE HENSON MD Jun 02, 2025 15:02
[2025-06-02 15:38] LABS: Anion Gap 10 (5-15)
[2025-06-02 15:56] LABS: Alanine Aminotransferase 39 U/L (7-40); Albumin 4.4 g/dL (3.2-4.8); Alkaline Phosphatase 67 U/L (46-116); BUN/Creatinine Ratio 9.9 (10.0-20.0); Bilirubin, Total 0.6 mg/dL (0.2-1.0); Blood Urea Nitrogen 14 mg/dL (9-23); Calcium 8.8 mg/dL (8.7-10.4); Carbon Dioxide 24 mmol/L (20-31); Chloride 106 mmol/L (98-107); Glucose 125 mg/dL (74-106); Potassium 4.0 mmol/L (3.5-5.1); Sodium 140 mmol/L (136-145); Total Protein 7.1 g/dL (5.7-8.2)
[2025-06-02 17:00] VITALS: BP 175/110; PULSE 97; RESP 16; TEMP 98; O2SAT 95
[2025-06-02 20:00] VITALS: PULSE 114; RESP 18; O2SAT 91
[2025-06-02 21:00] VITALS: BP 159/99; PULSE 114; RESP 18; TEMP 97.4; O2SAT 91
[2025-06-03 01:00] VITALS: BP 157/106; PULSE 63; RESP 17; TEMP 97.3; O2SAT 94
[2025-06-03 05:00] VITALS: BP 179/105; PULSE 80; RESP 16; TEMP 98.8; O2SAT 93
[2025-06-03 07:52] LABS: Hematocrit 38.2 % (41.0-53.0); Hemoglobin 12.7 g/dL (13.5-17.5); Mean Corpuscular Hemoglobin 28.0 pg (28.0-32.0); Mean Corpuscular Volume 84.2 fL (80.0-100.0); Nucleated Red Blood Cells % 0.0 %
[2025-06-03 08:00] VITALS: BP 169/100; PULSE 86; RESP 17; TEMP 98.8; O2SAT 95
[2025-06-03 08:10] LABS: Alanine Aminotransferase 33 U/L (7-40); Alkaline Phosphatase 65 U/L (46-116); Anion Gap 10 (5-15); BUN/Creatinine Ratio 12.5 (10.0-20.0); Blood Urea Nitrogen 17 mg/dL (9-23); Carbon Dioxide 24 mmol/L (20-31); Chloride 106 mmol/L (98-107); Glucose 103 mg/dL (74-106); Potassium 3.9 mmol/L (3.5-5.1); Sodium 140 mmol/L (136-145); Total Protein 6.8 g/dL (5.7-8.2)
[2025-06-03 08:11] LABS: Albumin 4.1 g/dL (3.2-4.8); Bilirubin, Total 0.5 mg/dL (0.2-1.0)
[2025-06-03 08:14] LABS: Calcium 8.6 mg/dL (8.7-10.4)
[2025-06-03] MEDS: ONDANSETRON HCL 4 MG/2 ML VIAL IV PRN (08:14)
--- NOTE | 2025-06-03 10:33 | DVHPN2 ---
Progress Note - Surgical Date Seen: Jun 03, 2025 Post op day Post op day: 1 Subjective Patient reports: Feels better (Patient feeling better this morning only complaining of pain around the incision sites, tolerated diet) Review of Systems: Deferred Objective Vital signs Vital Sign Date Time Temp Pulse Resp B/P (MAP) Pulse Ox O2 Delivery O2 Flow Rate FiO2 06/03/25 08:11 160/100 06/03/25 08:00 98.8 86 17 95 98.8 06/02/25 20:00 Room Air* 0 21 Total Intake and Output 06/02/25 06/02/25 06/03/25 15:00 23:00 07:00 Intake Total 0 ml 640 ml Output Total 275 ml Balance 0 ml 365 ml Medications Current Medications Medications Dose Ordered Sig/Carol Route Start Time Stop Time Status Last Admin Dose Admin Ceftriaxone Sodium 50 ml @ 100 mls/hr DAILY@09 IV 06/01/25 09:00 06/03/25 08:10 100 MLS/HR Metronidazole 100 ml @ 100 mls/hr Q8HR IV 05/31/25 22:00 06/03/25 06:03 100 MLS/HR Ondansetron HCl 4 mg Q4HP PRN IV 05/31/25 14:15 06/03/25 08:14 4 MG Pantoprazole Sodium 40 mg DAILY IV 06/01/25 10:00 06/03/25 08:10 40 MG Acetaminophen 650 mg Q6HR PO 06/01/25 00:00 06/03/25 06:04 650 MG Ibuprofen 600 mg Q6HR PO 06/01/25 00:00 06/03/25 06:04 600 MG Acetaminophen/ Hydrocodone Bitart 1 tab Q4HPRN PRN PO 05/31/25 19:30 05/31/25 21:28 1 TAB Acetaminophen/ Hydrocodone Bitart 1 tab Q4HP PRN PO 05/31/25 19:30 06/03/25 08:15 1 TAB Hydralazine HCl 10 mg Q6HP PRN IV 06/01/25 15:15 06/03/25 08:11 10 MG Polyethylene Glycol 17 gm ONCE STAT PO 06/03/25 10:23 06/03/25 10:24 UNV Laboratory Laboratory Tests 06/03/25 06:24 Test 06/03/25 06:24 Range/Units Serum Glucose 103 74-106 mg/dL Examination: GENERAL:Normal, HEENT:Normal (No icterus), ABDOMEN:Normal (Nondistended, soft, depressible incision sites with skin glue in place, some ecchymosis in the inferior portion of the umbilical incision. All incision sites without surrounding signs of infection. Appropriate tenderness) Labs and/or images reviewed: Labs reviewed by me (Hemoglobin stable, LFTs with a within normal limits) Problem List/Assessment/Plan Assessment and Plan Mr. Ayala is a 54-year-old male who presented with the acute cholecystitis is currently postop day 1 from laparoscopic cholecystectomy. Patient tolerating diet, and ambulating. Patient is cleared for surgical standpoint for discharge. 1. Cleared for discharge per surgical standpoint 2. No lifting over 10 lb for 6-8 weeks 3. Low-fat diet 4. May shower today, soap and water okay to run over incision sites 5. No bathing or swimming for 2 weeks 6. For baseline pain control take Tylenol and/or ibuprofen, follow blueprint clerk's directions 7. [place] 5-325 mg 1 tab p.o. every 6 hours p.r.n. severe pain 8. MiraLax 1 packet daily p.r.n. constipation 9. No driving if taking narcotics 10. Follow-up with Dr. Mendez in surgery Clinic in 2 weeks My Orders My Orders Orders - JOEL NOGUERA MD Procedure Category Date Status Time Cardiac DIET 06/02/25 Transmitted Diet-2gna,Lofat,Lochol Dinner Polyethylene Glycol PHA 06/03/25 Logged 17g Powder (Miralax 10:23 Plan discussed with Plan discussed with: Patient Visit Coding Surgery Date of Service if different f: Jun 03, 2025 Billing Provider: JOEL NOGUERA MD Surgery Visit Codes: [id number] INP/OBS CARE(HIGH) JOEL NOGUERA MD Jun 03, 2025 10:33
[2025-06-03] MEDS ORDERED: HYDR-4902 PO (10:38)
[2025-06-03] MEDS: POLYETHYLENE GLYCOL 17 GM PWDR PO STA (11:57)
[2025-06-03 13:00] VITALS: BP 146/104; PULSE 89; RESP 18; TEMP 97.8; O2SAT 96
[2025-06-03] MEDS ORDERED: LEVO500T91 PO (13:07)
[2025-06-03] MEDS ORDERED: HYDR-4798 PO (13:07)
[2025-06-03] MEDS ORDERED: METR-344 PO (13:07)
[2025-06-03] MEDS ORDERED: LOSA100T33 PO (13:09)
[2025-06-03] MEDS ORDERED: AMLO1TAB22 PO (13:32)
[2025-06-03 16:24] VITALS: BP 157/89; PULSE 90; RESP 20; TEMP 98.2; O2SAT 95
[2025-06-03] MEDS ORDERED: KETAMINE 50mg/ML 1ml syringe IM ONE (16:59)
== END 2025-06-03 17:00 | disposition home or self-care (01) | DRG 263 ==
LOC: ER 07:11 → OVERFLOW 14:01 → EAST 18:03
PROVIDERS: ADMIT Internal Medicine; ATTEND Internal Medicine
PROC: 0FT44ZZ Resection of Gallbladder, Percutaneous Endoscopic Approach (ICD-10-PCS; principal; 2025-06-02 12:16)
DX: K80.00 Calculus of gallbladder with acute cholecystitis without obstruction (principal); I16.1 Hypertensive emergency; E66.01 Morbid (severe) obesity due to excess calories; I10 Essential (primary) hypertension; K66.0 Peritoneal adhesions (postprocedural) (postinfection); K59.00 Constipation, unspecified; Z90.49 Acquired absence of other specified parts of digestive tract; Z68.35 Body mass index [BMI] 35.0-35.9, adult
CPT/HCPCS: 36415; 71045; 74177; 80048; 80053; 80076; 81001; 83690; 83880; 84484; 85025; 85610; 85730; 86850; 86900; 86901; 93005; 99291; G0378; J0131; J0694; J1100; J1885; J2003; J2405; J2470; J2704; J3490